=== PATIENT | female | born 1950 | race Caucasian/White ===

== ENCOUNTER 2016-11-11 15:23 | Inpatient (IN) | payer OTHER ==
[~2016-11-11] VITALS: Ht 157.5 cm; Wt 106.7 kg
[~2016-11-11 15:23] MED LIST changes: -CALCIUM 500 +1 EAC5 PO; -TYLENOL 500 MG500 MG PO
[2016-11-11 16:56] LABS: HEMOGLOBIN 11.4 gm/dl (12.3-15.3); RED BLOOD COUNT 4.04 M/UL (4.00-5.10); WHITE BLOOD COUNT 7.3 K/UL (4.5-11.0)
[2016-11-11] MEDS ORDERED: TYLENOL 500 MG500 MG PO (22:36)
[2016-11-12 05:48] LABS: HEMOGLOBIN 10.3 gm/dl (12.3-15.3); RED BLOOD COUNT 3.64 M/UL (4.00-5.10); WHITE BLOOD COUNT 8.3 K/UL (4.5-11.0)
[2016-11-13 05:50] LABS: RED BLOOD COUNT 3.61 M/UL (4.00-5.10); WHITE BLOOD COUNT 7.7 K/UL (4.5-11.0)
[2016-11-14 05:45] LABS: HEMOGLOBIN 9.9 gm/dl (12.3-15.3); RED BLOOD COUNT 3.52 M/UL (4.00-5.10); WHITE BLOOD COUNT 7.6 K/UL (4.5-11.0)
[2016-11-15 06:09] LABS: HEMOGLOBIN 10.2 gm/dl (12.3-15.3); RED BLOOD COUNT 3.62 M/UL (4.00-5.10); WHITE BLOOD COUNT 7.1 K/UL (4.5-11.0)
[2016-11-16 06:39] LABS: HEMOGLOBIN 10.5 gm/dl (12.3-15.3); RED BLOOD COUNT 3.75 M/UL (4.00-5.10); WHITE BLOOD COUNT 6.5 K/UL (4.5-11.0)
[2016-11-17 05:56] LABS: HEMOGLOBIN 10.3 gm/dl (12.3-15.3); RED BLOOD COUNT 3.65 M/UL (4.00-5.10); WHITE BLOOD COUNT 6.3 K/UL (4.5-11.0)
== END 2016-11-17 18:00 | disposition home or self-care (01) | DRG 682 ==
LOC: ER1 15:23 → M/S 17:58 → ZEROF 17:58 → M/S 20:19
PROVIDERS: Family Medicine; Internal Medicine Nephrology; Physician Assistant; ADMIT Family Medicine
DX: N17.9 Acute kidney failure, unspecified (principal); I50.33 Acute on chronic diastolic (congestive) heart failure; I13.0 Hypertensive heart and chronic kidney disease with heart failure and stage 1 through stage 4 chronic kidney disease, or unspecified chronic kidney disease; Z68.41 Body mass index [BMI] 40.0-44.9, adult; E87.3 Alkalosis; N18.3 Chronic kidney disease, stage 3 (moderate); E11.65 Type 2 diabetes mellitus with hyperglycemia; I27.2 Other secondary pulmonary hypertension; I48.91 Unspecified atrial fibrillation; D63.1 Anemia in chronic kidney disease; D50.9 Iron deficiency anemia, unspecified; E87.6 Hypokalemia; E66.9 Obesity, unspecified; E89.0 Postprocedural hypothyroidism; E78.5 Hyperlipidemia, unspecified; K21.9 Gastro-esophageal reflux disease without esophagitis; I87.8 Other specified disorders of veins; E55.9 Vitamin D deficiency, unspecified; Z91.19 Patient's noncompliance with other medical treatment and regimen; Z85.850 Personal history of malignant neoplasm of thyroid; Z92.3 Personal history of irradiation; Z79.01 Long term (current) use of anticoagulants; Z79.84 Long term (current) use of oral hypoglycemic drugs; Z79.1 Long term (current) use of non-steroidal anti-inflammatories (NSAID); Z79.899 Other long term (current) drug therapy; Z98.890 Other specified postprocedural states; Z82.3 Family history of stroke; Z84.1 Family history of disorders of kidney and ureter; Z83.3 Family history of diabetes mellitus; Z82.49 Family history of ischemic heart disease and other diseases of the circulatory system
CPT/HCPCS: 36415; 71020; 80048; 80053; 81001; 82043; 82272; 82550; 82553; 82570; 82728; 82800; 82962; 83540; 83550; 83874; 83880; 84132; 84484; 85025; 85027; 99284; J1756; J1940; J7050

== ENCOUNTER → 2016-11-11 | Outpatient (CLI) | payer OTHER ==
[~2016-11-11] MED LIST: ALDACTONE25 MG PO; CALCIUM 500 +1 EAC5 PO; CAPTOPRIL50 MG PO; CATAPRES 0.1MG0.1 MG PO; ELIQUIS 5 MG TAB5 MG PO; FERROUS SULFAT325 MG PO; GLUCOTROL 10 MG10 MG PO; HYDRALAZINE HCL50 MG PO; JANUVIA50 MG PO; LOPRESSOR50 MG PO; METOLAZONE2.5 MG PO; MULTAQ400 MG PO; NADOLOL80 MG PO; OSCAL 500 + D TA1 EA PO; PROTONIX40 MG PO; SYNTHROID150 MCG PO; SYNTHROID300 MCG PO; TYLENOL 500 MG500 MG PO; VITAMIN D50000 UNIT PO
== END ==
LOC: LAB 12:48
PROVIDERS: Internal Medicine Cardiovascular Disease
DX: R06.02 Shortness of breath (principal); I10 Essential (primary) hypertension; I48.91 Unspecified atrial fibrillation; N18.9 Chronic kidney disease, unspecified
CPT/HCPCS: 36415; 71020; 80048; 83880

== ENCOUNTER 2017-01-14 14:04 | Emergency (ER) | payer OTHER ==
[~2017-01-14 14:04] MED LIST changes: +TYLENOL 500 MG500 MG PO
[2017-01-14 16:30] LABS: HEMOGLOBIN 11.2 gm/dl (12.3-15.3); RED BLOOD COUNT 3.98 M/UL (4.00-5.10); WHITE BLOOD COUNT 5.7 K/UL (4.5-11.0)
== END 2017-01-14 22:23 | disposition home or self-care (01) ==
LOC: ER1 14:04
PROVIDERS: Emergency Medicine
DX: R42 Dizziness and giddiness (principal); I45.81 Long QT syndrome; R53.1 Weakness; R11.0 Nausea; E11.9 Type 2 diabetes mellitus without complications; I10 Essential (primary) hypertension; Z79.84 Long term (current) use of oral hypoglycemic drugs; Z79.82 Long term (current) use of aspirin; Z79.899 Other long term (current) drug therapy; Z79.01 Long term (current) use of anticoagulants; I48.91 Unspecified atrial fibrillation
CPT/HCPCS: 36415; 70450; 71010; 80053; 83735; 83880; 84484; 85025; 93005; 94664; 99285

== ENCOUNTER 2017-01-17 18:14 | Emergency (ER) | payer OTHER ==
[2017-01-17 20:42] LABS: HEMOGLOBIN 10.9 gm/dl (12.3-15.3); RED BLOOD COUNT 3.95 M/UL (4.00-5.10); WHITE BLOOD COUNT 8.9 K/UL (4.5-11.0)
[2017-01-19] MEDS ORDERED: CALCIUM 500 +1 EAC5 PO (23:12)
== END 2017-01-18 00:55 | disposition home or self-care (01) ==
LOC: ER1 18:14
PROVIDERS: Physician Assistant
DX: F41.9 Anxiety disorder, unspecified (principal); I48.91 Unspecified atrial fibrillation; E11.22 Type 2 diabetes mellitus with diabetic chronic kidney disease; N18.9 Chronic kidney disease, unspecified; Z79.01 Long term (current) use of anticoagulants; Z79.899 Other long term (current) drug therapy
CPT/HCPCS: 36415; 70450; 71010; 80053; 81001; 82550; 82553; 83735; 83874; 83880; 84443; 84484; 85025; 87086; 93005; 99285

== ENCOUNTER 2017-01-19 12:48 | Inpatient (IN) | payer OTHER ==
[~2017-01-19] VITALS: Ht 157.5 cm; Wt 91.7 kg
[2017-01-19 15:45] LABS: HEMOGLOBIN 11.1 gm/dl (12.3-15.3); RED BLOOD COUNT 4.02 M/UL (4.00-5.10); WHITE BLOOD COUNT 7.7 K/UL (4.5-11.0)
[2017-01-19] MEDS ORDERED: CALCIUM 500 +1 EAC5 PO (23:12)
== END 2017-01-21 13:45 | disposition home or self-care (01) | DRG 643 ==
LOC: ER1 12:48 → ZEROF 17:54 → MED SURG 4 17:54
PROVIDERS: Specialist/Technologist Athletic Trainer; ADMIT Family Medicine
PROC: 5A09357 Assistance with Respiratory Ventilation, Less than 24 Consecutive Hours, Continuous Positive Airway Pressure (ICD-10-PCS; principal; 2017-01-21)
DX: E05.80 Other thyrotoxicosis without thyrotoxic crisis or storm (principal); I50.33 Acute on chronic diastolic (congestive) heart failure; I13.0 Hypertensive heart and chronic kidney disease with heart failure and stage 1 through stage 4 chronic kidney disease, or unspecified chronic kidney disease; E11.22 Type 2 diabetes mellitus with diabetic chronic kidney disease; N18.3 Chronic kidney disease, stage 3 (moderate); I48.0 Paroxysmal atrial fibrillation; I27.2 Other secondary pulmonary hypertension; Y83.8 Other surgical procedures as the cause of abnormal reaction of the patient, or of later complication, without mention of misadventure at the time of the procedure; E66.9 Obesity, unspecified; Z68.36 Body mass index [BMI] 36.0-36.9, adult; I45.81 Long QT syndrome; E89.0 Postprocedural hypothyroidism; Y81.3 Surgical instruments, materials and general- and plastic-surgery devices (including sutures) associated with adverse incidents; E55.9 Vitamin D deficiency, unspecified; I87.8 Other specified disorders of veins; G47.30 Sleep apnea, unspecified; Z85.850 Personal history of malignant neoplasm of thyroid; Z79.01 Long term (current) use of anticoagulants; Z79.84 Long term (current) use of oral hypoglycemic drugs; Z79.52 Long term (current) use of systemic steroids; Z79.1 Long term (current) use of non-steroidal anti-inflammatories (NSAID); Z79.899 Other long term (current) drug therapy; Z98.890 Other specified postprocedural states; Z82.3 Family history of stroke; Z84.1 Family history of disorders of kidney and ureter; Z83.3 Family history of diabetes mellitus; Z82.49 Family history of ischemic heart disease and other diseases of the circulatory system
CPT/HCPCS: 36415; 71010; 80048; 80053; 81001; 82009; 82550; 82553; 82803; 82962; 83690; 83880; 84439; 84443; 84484; 85025; 85610; 85730; 87040; 87086; 93005; 94660; 96374; 96375; 99285; J1940; J2405

== ENCOUNTER 2020-10-02 21:08 | Inpatient (IN) | payer OTHER ==
[~2020-10-02] VITALS: Ht 157.5 cm; Wt 103.0 kg
[~2020-10-02 21:08] MED LIST changes: +CALCIUM 500 +1 EAC5 PO; +ELIQUIS 2.5 MG2.5 MG PO; -ELIQUIS 5 MG TAB5 MG PO; -GLUCOTROL 10 MG10 MG PO; +GLUCOTROL5 MG PO; +HYDRALAZINE HCL25 MG PO; -HYDRALAZINE HCL50 MG PO; -METOLAZONE2.5 MG PO; +SYNTHROID200 MCG PO; -SYNTHROID300 MCG PO; +VITAMIN D21250 MCG PO; -VITAMIN D50000 UNIT PO
[2020-10-02 23:10] LABS: HEMOGLOBIN 10.7 gm/dl (12.3-15.3); RED BLOOD COUNT 3.54 M/UL (4.00-5.10); WHITE BLOOD COUNT 6.5 K/UL (4.5-11.0)
[2020-10-03] MEDS ORDERED: ALLOPURINOL100 MG PO (09:26)
[2020-10-03] MEDS ORDERED: NOVOLOG FL100 UNIT/1 SQ (09:27)
[2020-10-03] MEDS ORDERED: LEVEMIR FL100 UNIT/1 SQ (09:29)
[2020-10-03] MEDS ORDERED: BUMETANIDE2 MG PO (09:32)
[2020-10-03] MEDS ORDERED: TRADJENTA5 MG PO (09:38)
[2020-10-03] MEDS ORDERED: XOPENEX1.25 MG/3 INH (09:40)
[2020-10-03] MEDS ORDERED: GLIPIZIDE5 MG PO (10:03)
[2020-10-03] MEDS ORDERED: ZINC30 MG PO (10:06)
[2020-10-03] MEDS ORDERED: VITAMIN C500 M4 PO (10:06)
[2020-10-03] MEDS ORDERED: ZAROXOLYN/DIUL2.5 MG PO (10:11)
[2020-10-03] MEDS ORDERED: INDERAL TAB 2020 MG PO (10:24)
[2020-10-06 05:54] LABS: HEMOGLOBIN 9.7 gm/dl (12.3-15.3); RED BLOOD COUNT 3.23 M/UL (4.00-5.10)
[2020-10-07 04:57] LABS: HEMOGLOBIN 9.5 gm/dl (12.3-15.3); RED BLOOD COUNT 3.18 M/UL (4.00-5.10); WHITE BLOOD COUNT 5.4 K/UL (4.5-11.0)
[2020-10-07 15:11] LABS: A/G RATIO 0.8 (0.7-1.7); ALPHA-1-GLOBULIN 0.3 g/dL (0.0-0.4); ALPHA-2-GLOBULIN 0.7 g/dL (0.4-1.0); BETA GLOBULIN 1.2 g/dL (0.7-1.3); GAMMA GLOBULIN 1.7 g/dL (0.4-1.8); GLOBULIN, TOTAL 3.9 g/dL (2.2-3.9); IMMUNOGLOBULIN A, QN, SERUM 724 mg/dL (64-422); IMMUNOGLOBULIN G, QN, SERUM 1567 mg/dL (586-1602); IMMUNOGLOBULIN M, QN, SERUM 233 mg/dL (26-217); M-SPIKE Not Observed g/dL (Not Observed); PROTEIN, TOTAL, SERUM 6.9 g/dL (6.0-8.5)
== END 2020-10-07 16:04 | disposition home health service (06) | DRG 644 ==
LOC: ER1 21:08 → CDU 10-03 01:09 → M/S 10-03 17:25
PROVIDERS: Emergency Medicine; Internal Medicine Nephrology; Physician Assistant Medical; ADMIT Family Medicine
DX: E20.9 Hypoparathyroidism, unspecified (principal); I13.0 Hypertensive heart and chronic kidney disease with heart failure and stage 1 through stage 4 chronic kidney disease, or unspecified chronic kidney disease; N18.4 Chronic kidney disease, stage 4 (severe); I50.22 Chronic systolic (congestive) heart failure; Z20.822 Contact with and (suspected) exposure to COVID-19; E11.22 Type 2 diabetes mellitus with diabetic chronic kidney disease; E03.9 Hypothyroidism, unspecified; I48.91 Unspecified atrial fibrillation; G47.33 Obstructive sleep apnea (adult) (pediatric); E66.01 Morbid (severe) obesity due to excess calories; M19.90 Unspecified osteoarthritis, unspecified site; M10.9 Gout, unspecified; L89.322 Pressure ulcer of left buttock, stage 2; E11.40 Type 2 diabetes mellitus with diabetic neuropathy, unspecified; R01.1 Cardiac murmur, unspecified; I25.10 Atherosclerotic heart disease of native coronary artery without angina pectoris; F41.9 Anxiety disorder, unspecified; E87.6 Hypokalemia; D64.9 Anemia, unspecified; Z98.42 Cataract extraction status, left eye; Z98.41 Cataract extraction status, right eye; Z85.850 Personal history of malignant neoplasm of thyroid; Z83.3 Family history of diabetes mellitus; Z82.3 Family history of stroke; Z82.49 Family history of ischemic heart disease and other diseases of the circulatory system; Z84.1 Family history of disorders of kidney and ureter; Z84.89 Family history of other specified conditions; Z79.01 Long term (current) use of anticoagulants; Z79.890 Hormone replacement therapy; Z79.4 Long term (current) use of insulin; Z79.899 Other long term (current) drug therapy; Z68.33 Body mass index [BMI] 33.0-33.9, adult
CPT/HCPCS: 36415; 71046; 71250; 80048; 80053; 80202; 82330; 82397; 82652; 82784; 82962; 83605; 83615; 83690; 83735; 83883; 83970; 84100; 84155; 84165; 84481; 85025; 85027; 86334; 90471; 93005; 94760; 96372; 99284; J0692; J2405; J3370; J7070; U0002

== ENCOUNTER → 2020-10-09 | Outpatient (CLI) | payer OTHER ==
[~2020-10-09] MED LIST changes: +ALDACTONE 25MG25 MG PO; +ALLOPURINOL100 MG PO; +BUMETANIDE2 MG PO; +ELIQUIS2.5 MG PO; +FAMOTIDINE20 MG PO; +GLIPIZIDE5 MG PO; +INDERAL TAB 2020 MG PO; +LEVEMIR FL100 UNIT/1 SQ; +NOVOLOG FL100 UNIT/1 SQ; +ONDANSETRON HCL4 MG PO; +PEPCID20 MG PO; +PHENERGAN 12.12.5 M1 PO; +POTASSIUM CHLO20 ME2 PO; +TRADJENTA5 MG PO; +VITAMIN C500 M4 PO; +XOPENEX1.25 MG/3 INH; +ZAROXOLYN/DIUL2.5 MG PO; +ZINC30 MG PO
== END ==
LOC: LAB 18:04
PROVIDERS: Family Medicine
DX: N18.4 Chronic kidney disease, stage 4 (severe) (principal)
CPT/HCPCS: 80048

== ENCOUNTER 2020-11-02 10:01 | Inpatient (IN) | payer OTHER ==
[~2020-11-02] VITALS: Ht 157.5 cm; Wt 99.8 kg
[~2020-11-02 10:01] MED LIST changes: -ALDACTONE 25MG25 MG PO; -ELIQUIS2.5 MG PO; -FAMOTIDINE20 MG PO; -ONDANSETRON HCL4 MG PO; -PEPCID20 MG PO; -PHENERGAN 12.12.5 M1 PO; -POTASSIUM CHLO20 ME2 PO
[2020-11-02 10:54] LABS: HEMOGLOBIN 9.2 gm/dl (12.3-15.3); RED BLOOD COUNT 3.04 M/UL (4.00-5.10); WHITE BLOOD COUNT 7.5 K/UL (4.5-11.0)
[2020-11-02] MEDS ORDERED: PHENERGAN 12.12.5 M1 PO (18:25)
[2020-11-02] MEDS ORDERED: FAMOTIDINE20 MG PO (18:26)
[2020-11-02] MEDS ORDERED: POTASSIUM CHLO20 ME2 PO (18:27)
[2020-11-02] MEDS ORDERED: ONDANSETRON HCL4 MG PO (18:29)
[2020-11-02] MEDS ORDERED: ELIQUIS2.5 MG PO (18:30)
[2020-11-03 05:00] LABS: HEMOGLOBIN 8.8 gm/dl (12.3-15.3); RED BLOOD COUNT 2.92 M/UL (4.00-5.10)
[2020-11-03 05:03] LABS: WHITE BLOOD COUNT 5.1 K/UL (4.5-11.0)
[2020-11-04 10:48] LABS: HEMOGLOBIN 9.6 gm/dl (12.3-15.3); RED BLOOD COUNT 3.2 M/UL (4.00-5.10)
[2020-11-04 10:50] LABS: WHITE BLOOD COUNT 15.3 K/UL (4.5-11.0)
[2020-11-04] MEDS ORDERED: PEPCID20 MG PO (13:34)
[2020-11-04] MEDS ORDERED: ALDACTONE 25MG25 MG PO (18:28)
[2020-11-05 04:54] LABS: HEMOGLOBIN 9.6 gm/dl (12.3-15.3); RED BLOOD COUNT 3.19 M/UL (4.00-5.10)
[2020-11-05 04:57] LABS: WHITE BLOOD COUNT 22.2 K/UL (4.5-11.0)
--- NOTE | 2020-11-05 05:07 | NUR ---
RN WAS NOTIFIED PER LAB OF PATIENT'S ELEVATED BUN. CRITICAL LAB NOTED TO BE TRENDING DOWN. AWARE.
[2020-11-06 03:08] LABS: HEMOGLOBIN 9.4 gm/dl (12.3-15.3); RED BLOOD COUNT 3.09 M/UL (4.00-5.10); WHITE BLOOD COUNT 26.4 K/UL (4.5-11.0)
[2020-11-06 10:20] LABS: RED BLOOD COUNT 3.02 M/UL (4.00-5.10); WHITE BLOOD COUNT 29.7 K/UL (4.5-11.0)
--- NOTE | 2020-11-06 19:00 | NUR ---
1914- Dr. Huggins and I entered patient's room to assess. Bleeding from mouth noted, low 02 saturation. Elevated head of bed, turned patient to side at this time. Suction/Deep suction performed. Dr. Moe contacted via telephone to inform her of patient condition change. New orders for cbc, cmp, lactic, abg at this time. Labs resulted, vital signs obtained. Informed Dr. Huggins and Dr. Moe of results. BP 77/46, HR 79, T 96.1 tympanic, RR 20, O2 @ 5L NC. New orders from Dr. Moe/Bhavna to transfer patient to pcu at this time to recieve higher level of care/monitoring. Levophed drip started, report called to PCU and patient transferred.
[2020-11-06 19:52] LABS: HEMOGLOBIN 8.7 gm/dl (12.3-15.3); RED BLOOD COUNT 2.91 M/UL (4.00-5.10); WHITE BLOOD COUNT 29.3 K/UL (4.5-11.0)
--- NOTE | 2020-11-07 01:23 | NUR ---
PATIENT ARRIVED TO PCU AT 21:15 ON 11/06/20 OBTAINED A RECTAL TEMPATURE AND IT WAS 93.0. AWARE AND ORDERED LESIA PEDRO
[2020-11-07 03:22] LABS: HEMOGLOBIN 8.9 gm/dl (12.3-15.3); RED BLOOD COUNT 2.97 M/UL (4.00-5.10)
[2020-11-07 03:29] LABS: WHITE BLOOD COUNT 30.9 K/UL (4.5-11.0)
--- NOTE | 2020-11-07 05:22 | NUR ---
CALLED STRAIGHT[employer] TO LET IT BE KNOWN THAT I HAVE ATTEMPTED TO CALL MD A COUPLE OF TIMES WITH NO ANSWER. HOUSE ASKED TO WAIT AND CALL BACK AROUND [phone] REGARDING CONDITION AND LABS. PATIENT IS STABLE AT THIS TIME.
--- NOTE | 2020-11-07 07:03 | NUR ---
CALLED REPORT TO ICU. VITAL ARE HR 120. BP 101/53 (64) RR 25 AND 98% 02 ON 60% FIO2 BIPAP.
--- NOTE | 2020-11-07 07:52 | NUR ---
NOTIFIED FAMILY AT 0710. FAMILY AWARE OF TRANSFER AND CONDITION
[2020-11-08 11:40] LABS: HEMOGLOBIN 8.9 gm/dl (12.3-15.3); RED BLOOD COUNT 2.92 M/UL (4.00-5.10); WHITE BLOOD COUNT 33.7 K/UL (4.5-11.0)
== END 2020-11-08 16:45 | disposition expired | DRG 177 ==
LOC: ER1 10:01 → CDU 17:55 → MED SURG 4 17:55 → PROG CARE 11-06 21:17 → 2 EAST 11-07 08:02
PROVIDERS: Emergency Medicine; Hospitalist; Internal Medicine Nephrology; Physician Assistant; ADMIT Family Medicine
PROC: 8E0ZXY6 Isolation (ICD-10-PCS; principal; 2020-11-02)
PROC: XW13325 Transfusion of Convalescent Plasma (Nonautologous) into Peripheral Vein, Percutaneous Approach, New Technology Group 5 (ICD-10-PCS; 2020-11-02)
PROC: 3E033XZ Introduction of Vasopressor into Peripheral Vein, Percutaneous Approach (ICD-10-PCS; 2020-11-07)
DX: U07.1 COVID-19 (principal); J12.82 Pneumonia due to coronavirus disease 2019; I50.33 Acute on chronic diastolic (congestive) heart failure; R65.21 Severe sepsis with septic shock; G93.41 Metabolic encephalopathy; J69.0 Pneumonitis due to inhalation of food and vomit; A41.89 Other specified sepsis; J96.11 Chronic respiratory failure with hypoxia; N18.4 Chronic kidney disease, stage 4 (severe); N17.9 Acute kidney failure, unspecified; E87.1 Hypo-osmolality and hyponatremia; I50.32 Chronic diastolic (congestive) heart failure; I13.0 Hypertensive heart and chronic kidney disease with heart failure and stage 1 through stage 4 chronic kidney disease, or unspecified chronic kidney disease; I48.21 Permanent atrial fibrillation; E11.22 Type 2 diabetes mellitus with diabetic chronic kidney disease; I48.91 Unspecified atrial fibrillation; G47.33 Obstructive sleep apnea (adult) (pediatric); M10.9 Gout, unspecified; K21.9 Gastro-esophageal reflux disease without esophagitis; F41.9 Anxiety disorder, unspecified; D64.9 Anemia, unspecified; I35.0 Nonrheumatic aortic (valve) stenosis; R74.01 Elevation of levels of liver transaminase levels; D72.829 Elevated white blood cell count, unspecified; K72.90 Hepatic failure, unspecified without coma; Z66 Do not resuscitate; I27.20 Pulmonary hypertension, unspecified; M19.90 Unspecified osteoarthritis, unspecified site; E83.51 Hypocalcemia; E89.0 Postprocedural hypothyroidism; Z99.81 Dependence on supplemental oxygen; Z98.890 Other specified postprocedural states; Z79.01 Long term (current) use of anticoagulants; Z85.850 Personal history of malignant neoplasm of thyroid; Z98.49 Cataract extraction status, unspecified eye; Z82.49 Family history of ischemic heart disease and other diseases of the circulatory system
CPT/HCPCS: ECHO; 0240U; 36415; 36600; 71045; 80048; 80053; 80202; 81001; 82550; 82553; 82803; 82962; 83605; 83874; 83880; 84484; 85025; 85027; 86900; 86901; 86927; 87040; 92610; 93005; 93306; 94640; 94660; 94760; 96372; 96374; 96375; 99285; A6212; J0461; J0692; J0696; J1100; J1160; J1265; J2185; J2270; J2543; J3370; J7030; J7070; P9047